=== PATIENT | female | born 1960 | race Caucasian/White ===

== ENCOUNTER → 2020-10-25 | Outpatient (CLI) | payer BC | LOC: WI 14:24 | PROVIDERS: ATTEND Nurse Practitioner Family | DX: Z12.31 Encounter for screening mammogram for malignant neoplasm of breast (principal) | CPT/HCPCS: 77067 ==

== ENCOUNTER → 2020-10-27 | Outpatient (CLI) | payer BC ==
[2020-10-27 08:14] LABS: ABSOLUTE BASOPHILS # (AUTO) 0.1 10^3/uL (0.0-0.2); ABSOLUTE EOSINOPHILS # (AUTO) 0.3 10^3/uL (0.0-0.6); ABSOLUTE LYMPHOCYTES (AUTO) 3.6 10^3/uL (0.5-4.7); ABSOLUTE MONOCYTES (AUTO) 0.5 10^3/uL (0.1-1.4); ABSOLUTE NEUT (AUTO) 4.2 10^3/uL (1.7-8.2); BASOPHILS % (AUTO) 0.9 % (0-2); EOSINOPHILS % (AUTO) 3.3 % (0-6); HEMATOCRIT 41.3 % (36.0-47.0); HEMOGLOBIN 13.8 g/dL (12.0-15.5); LYMPHOCYTES % (AUTO) 41.6 % (13-45); MEAN CORPUSCULAR HEMOGLOBIN 31.5 pg (27.0-33.4); MEAN CORPUSCULAR HGB CONC 33.3 g/dL (32.0-36.0); MEAN CORPUSCULAR VOLUME 95 fl (80-97); MONOCYTES % (AUTO) 5.8 % (3-13); PLATELET COUNT 320 10^3/uL (150-450); RED BLOOD COUNT 4.36 10^6/uL (3.72-5.28); RED CELL DISTRIBUTION WIDTH 13.4 % (11.5-14.0); SEGMENTED NEUTROPHILS % (AUTO) 48.4 % (42-78); TOTAL CELLS COUNTED % (AUTO) 100 %; WHITE BLOOD COUNT 8.6 10^3/uL (4.0-10.5)
[2020-10-27 08:32] LABS: ALBUMIN 4.4 g/dL (3.5-5.0); ALKALINE PHOSPHATASE 96 U/L (38-126); ANION GAP 10 (5-19); ASPARTATE AMINO TRANSFERASE 31 U/L (14-36); BLOOD UREA NITROGEN 22 mg/dL (7-20); CALCIUM 10.2 mg/dL (8.4-10.2); CARBON DIOXIDE 23 mmol/L (22-30); CHLORIDE 107 mmol/L (98-107); GLUCOSE 129 mg/dL (75-110)
[2020-10-27 08:33] LABS: BILIRUBIN,DIRECT 0.2 mg/dL (0.0-0.4); BILIRUBIN,TOTAL 0.6 mg/dL (0.2-1.3); TOTAL PROTEIN 7.4 g/dL (6.3-8.2)
== END ==
LOC: LAB 07:52
PROVIDERS: ATTEND Nurse Practitioner Family
DX: E11.9 Type 2 diabetes mellitus without complications (principal); I10 Essential (primary) hypertension; R79.89 Other specified abnormal findings of blood chemistry
CPT/HCPCS: 36415; 80053; 83036; 85025

== ENCOUNTER 2020-11-26 07:14 | Inpatient (IN) | payer BC ==
[2020-11-26] MEDS ORDERED: NORMAL SALINE 1000 ML 1,000 ML IV ONE (08:35)
--- NOTE | 2020-11-26 08:39 | RADIOLOGY REPORT (SQ) ---
EXAM DESCRIPTION: CHEST SINGLE VIEW IMAGES COMPLETED DATE/TIME: 11/26/2020 8:31 am REASON FOR STUDY: cp COMPARISON: None. EXAM PARAMETERS: NUMBER OF VIEWS: One view. TECHNIQUE: Single frontal radiographic view of the chest acquired. RADIATION DOSE: NA LIMITATIONS: None. FINDINGS: LUNGS AND PLEURA: No opacities, masses or pneumothorax. No pleural effusion. MEDIASTINUM AND HILAR STRUCTURES: No masses. Contour normal. HEART AND VASCULAR STRUCTURES: Enlarged cardiac silhouette. BONES: No acute findings. HARDWARE: None in the chest. OTHER: No other significant finding. IMPRESSION: Enlarged cardiac silhouette without other evidence of acute intrathoracic process. TECHNICAL DOCUMENTATION: JOB ID: [id number] 2010 [employer]- All Rights Reserved Reading location - IP/workstation name: [email or web address]
[2020-11-26 09:09] LABS: ABSOLUTE BASOPHILS # (AUTO) 0.1 10^3/uL (0.0-0.2); ABSOLUTE EOSINOPHILS # (AUTO) 0.3 10^3/uL (0.0-0.6); ABSOLUTE LYMPHOCYTES (AUTO) 2.4 10^3/uL (0.5-4.7); ABSOLUTE MONOCYTES (AUTO) 0.4 10^3/uL (0.1-1.4); ABSOLUTE NEUT (AUTO) 3.9 10^3/uL (1.7-8.2); ALKALINE PHOSPHATASE 102 U/L (38-126); ANION GAP 7 (5-19); ASPARTATE AMINO TRANSFERASE 34 U/L (14-36); BASOPHILS % (AUTO) 1.1 % (0-2); BILIRUBIN,DIRECT 0.1 mg/dL (0.0-0.4); BILIRUBIN,TOTAL 1.2 mg/dL (0.2-1.3); BLOOD UREA NITROGEN 25 mg/dL (7-20); CALCIUM 9.8 mg/dL (8.4-10.2); CARBON DIOXIDE 22 mmol/L (22-30); CHLORIDE 108 mmol/L (98-107); CREATINE KINASE 106 U/L (30-135); GLUCOSE 100 mg/dL (75-110); HEMATOCRIT 38.3 % (36.0-47.0); LYMPHOCYTES % (AUTO) 33.9 % (13-45); MEAN CORPUSCULAR HEMOGLOBIN 31.6 pg (27.0-33.4); MEAN CORPUSCULAR VOLUME 93 fl (80-97); PLATELET COUNT 264 10^3/uL (150-450); POTASSIUM 5.1 mmol/L (3.6-5.0); RED BLOOD COUNT 4.13 10^6/uL (3.72-5.28); TOTAL CELLS COUNTED % (AUTO) 100 %; TOTAL PROTEIN 6.8 g/dL (6.3-8.2)
--- NOTE | 2020-11-26 09:20 | ER Document Report ---
Entered by SAKSHI RAZO SCRIBE 11/26/20 0844 Acting as scribe for:GLORY DOE MD ED General - General Chief Complaint: Palpitations Stated Complaint: PALPITATIONS Time Seen by Provider: 11/26/20 08:22 Mode of Arrival: Ambulatory Information source: Patient Notes: This 60 year old female patient was sent from endoscopy suite to the emergency department today for an asymptomatic rapid heart rate. Patient showed up this morning to this facility to have her scheduled colonoscopy performed and she was found to have a heart rate in the 130s. Patient was asymptomatic. Patient reports that her last food intake was Sunday night and she drank a little bit of Gatorade yesterday with MiraLAX. Patient mentions that she has had excessive amounts of diarrhea and urination. Patient mentions that she thinks she could be dehydrated. She has not had any caffeine recently. Patient has not experienced any chest pain. Patient was not aware that her heart was beating fast until I told her. Patient does report that she occasionally has spells where her heart rate will speed up and she will feel dizzy, but it never persists for very much time. - Related Data Allergies/Adverse Reactions: No Known Allergies Allergy (Unverified 11/25/20 12:44) Past Medical History - General Information source: Patient - Social History Smoking Status: Current Every Day Smoker Cigarette use (# per day): Yes - 1/4 ppd Frequency of alcohol use: None Drug Abuse: None Lives with: Family Family History: CAD - Father 74 from myocardial infarction, mother at 72 from stroke - Past Medical History Cardiac Medical History: Reports: Hx Hypercholesterolemia, Hx Hypertension Endocrine Medical History: Reports: Hx Diabetes Mellitus Type 2 Psychiatric Medical History: Reports: Hx Depression Past Surgical History: Reports: Hx Breast Surgery - biopsy - right, benign, Hx Cholecystectomy, Hx Hysterectomy - Immunizations Hx Diphtheria, Pertussis, Tetanus Vaccination: Yes Review of Systems - Review of Systems Constitutional: No symptoms reported EENT: No symptoms reported Cardiovascular: See HPI, Heart racing Respiratory: No symptoms reported Gastrointestinal: No symptoms reported Genitourinary: No symptoms reported Female Genitourinary: No symptoms reported Musculoskeletal: No symptoms reported Skin: No symptoms reported Hematologic/Lymphatic: No symptoms reported Neurological/Psychological: No symptoms reported -: Yes All other systems reviewed and negative Physical Exam - Vital signs Vitals: Temp Resp BP Pulse Ox 98.2 F 27 H 125/104 H 97 11/26/20 07:44 11/26/20 07:44 11/26/20 07:44 11/26/20 07:44 - Notes Notes: Physical Exam: General: Alert. HEENT: Normocephalic. Atraumatic. PERRL. Extraocular movements intact. Oropharynx clear. Neck: Supple. Non-tender. Respiratory: No respiratory distress. Clear and equal breath sounds bilaterally. Cardiovascular: Tachycardic into the 130s, normal rhythm. Abdominal: Obese. Non-tender. No distension. Normal Bowel Sounds. Back: No gross abnormalities. Extremities: Moves all four extremities. Upper extremities: Normal inspection. Normal ROM. Lower extremities: Normal inspection. No edema. Normal ROM. Neurological: Normal cognition. AAOx4. Normal speech. Psychological: Normal affect. Normal Mood. Skin: Warm. Dry. Normal color. Course - Re-evaluation Re-evalutation: 11/26/20 15:11 Patient was given Adenocard 6 mg IV push in an effort to slow the rate and determine the rhythm. It did slow her down enough to prove this is atrial flutter and then she went back to the rate of 130. - Vital Signs Vital signs: Temp Pulse Resp BP Pulse Ox 98.2 F 26 H 118/95 H 97 11/26/20 07:44 11/26/20 15:01 11/26/20 15:00 11/26/20 15:01 - Laboratory Results Result Diagrams: 11/26/20 08:40 11/26/20 08:40 Laboratory Results Interpreted: 11/26/20 11/26/20 08:40 11:30 Sodium 136.7 L Potassium 5.1 H Chloride 108 H BUN 25 H Creatinine 1.37 H Est GFR ( Amer) 48 L Est GFR (MDRD) Non-Af 39 L NT-Pro-B Natriuret Pep 2640 H Critical Laboratory Results Reviewed: Yes Attending or Supervising Physician who Reviewed Labs: GLORY DOE - Troponin leak - Radiology Results Radiology Results Interpreted: 11/26/20 09:34 Chest x-ray shows enlarged heart, no other abnormalities. Critical Radiology Results Reviewed: No Critical Results - EKG Interpretation by De EKG shows normal: Hawkins. abnormal: Intervals - Prolonged QT interval, QRS Complexes - Borderline R wave progression in the anterior leads, ST-T Waves - Borderline anterolateral T abnormalities Rate: Tachycardia - 129 Rhythm: A.Flutter Critical Care Note - Critical Care Note Total time excluding time spent on procedures (mins): 35 Comments: At least 35 minutes spent evaluating patient, reviewing current and past history and lab work. Patient did have critical troponin values. Patient had a EKG which was suggestive but inconclusive of atrial flutter. Patient did not respond to initial medications. Diagnosis made using a Brittney to slow the heart rate and expose the atrial flutter. Time spent discussing the Case with the dinkey engine mechanic on-call, and with the hospitalist to get the patient admitted. Discharge - Discharge Clinical Impression: Atrial flutter with rapid ventricular response, Elevated troponin I level Condition: Good Disposition: ADMITTED OBSERVATION Admitting Provider: Alysa (Hospitalist) Unit Admitted: IMCU I personally performed the services described in the documentation, reviewed and edited the documentation which was dictated to the scribe in my presence, and it accurately records my words and actions.
[2020-11-26 09:21] LABS: CREATINE KINASE MB 2.07 ng/mL (<4.55)
[2020-11-26 09:24] LABS: TROPONIN I 0.146 ng/mL
[2020-11-26] MEDS ORDERED: ASPIRIN 81 MG TABLET, CHEWABLE PO ONE (09:26)
[2020-11-26] MEDS ORDERED: METOPROLOL TARTRATE PF/INJ 5 MG/5 ML SDV IV ONE ×2 (09:27→20:00)
[2020-11-26] MEDS ORDERED: ENOXAPARIN SODIUM INJ 100 MG/1 ML DISP.SYRIN SUBCUT ONE (09:30)
[2020-11-26] MEDS ORDERED: FAMOTIDINE INJ/PF 20 MG/2 ML SDV IV ONE (09:31)
[2020-11-26 09:47] LABS: INTERNATIONAL RATION (INR) 0.93; PROTHROMBIN TIME 12.7 SEC (11.4-15.4)
[2020-11-26 10:15] LABS: APPEARANCE,URINE CLEAR; BILIRUBIN,URINE NEGATIVE (NEGATIVE); COLOR,URINE YELLOW; GLUCOSE, URINE NEGATIVE (NEGATIVE); KETONES,URINE NEGATIVE (NEGATIVE); LEUKOCYTE ESTERASE,URINE NEGATIVE (NEGATIVE); NITRITE,URINE NEGATIVE (NEGATIVE); PROTEIN,URINE NEGATIVE (NEGATIVE); URINE SPECIFIC GRAVITY 1.008; UROBILINOGEN,URINE NEGATIVE mg/dL (<2.0)
[2020-11-26] MEDS ORDERED: DILTIAZEM HCL INJ 25 MG/5 ML VIAL IV ONE ×5 (11:45→20:00)
[2020-11-26] MEDS ORDERED: ADENOSINE INJ/PF 6 MG/2 ML SDV IV ONE (14:20)
[2020-11-26] MEDS ORDERED: DILTIAZEM HCL/D5W 125 MG/125 ML RTUINJ IV PRN (15:15)
[2020-11-26] MEDS ORDERED: ONDANSETRON HCL INJ/PF 4 MG/2 ML SDV IV PRN (16:09)
[2020-11-26] MEDS ORDERED: MAG HYDROX/AL HYDROX/SIMETH SUSP 30 ML UDCUP PO PRN (16:09)
[2020-11-26 16:22] LABS: FREE T4 (FREE THYROXINE) 1.29 ng/dL (0.78-2.19)
[2020-11-26] MEDS ORDERED: ACETAMINOPHEN 325 MG TABLET PO PRN (16:28)
[2020-11-26] MEDS ORDERED: DEXTROSE 50%-WATER 25 GM/50 ML DISP.SYRIN IV PRN ×2 (16:31)
[2020-11-26] MEDS ORDERED: DEXTROSE 40% GEL 15 GM TUBE PO PRN ×2 (16:31)
[2020-11-26] MEDS ORDERED: GLUCAGON,HUMAN RECOMB 1 MG INJ IM PRN (16:31)
[2020-11-26 16:45] LABS: THYROID STIMULATING HORMONE 1.84 uIU/mL (0.47-4.68)
[2020-11-26] MEDS ORDERED: NICOTINE 14 MG/24 HR PATCH.TD24 TD PRN (16:47)
--- NOTE | 2020-11-26 16:47 | PDOC H&P ---
History of Present Illness Admission Date/PCP: 11/26/20 15:45 DEMARCO CARRENO Patient complains of: Palpitations History of Present Illness: TOMY LEO is a 60 year old female with history of hypertension, diabetes type 2, tobacco use, who presents to the hospital with complaints of palpitations. Patient was actually scheduled to have a routine screening colonoscopy this morning and presented to [facility] from which she was referred to the ER after being noted to be tachycardic in the 130s. Notably patient has no previous diagnosis of arrhythmia but she does states that for the past 6 weeks, she has been experiencing intermittent episodes of palpitations occasionally with mild dizziness but never syncopized. She has not experienced any chest pain. She denies any history of heart disease, stroke or other vascular disease. In the ER, patient received Lopressor IV push and diltiazem push with no effect. She also received a bolus of 1 L normal saline. She subsequently received adenosine which slowed down the rhythm enough to tow picker on flutter waves. She currently denies any chest pain or shortness of breath and feels well. Past Medical History Cardiac Medical History: Reports: Hyperlipidema, Hypertension Denies: Coronary Artery Disease, Myocardial Infarction Pulmonary Medical History: Denies: Asthma, Chronic Obstructive Pulmonary Disease (COPD), Pneumonia Neurological Medical History: Denies: Seizures Endocrine Medical History: Reports: Diabetes Mellitus Type 2 Musculoskeltal Medical History: Denies: Arthritis Psychiatric Medical History: Reports: Depression Hematology: Denies: Anemia Past Surgical History Past Surgical History: Reports: Cholecystectomy, Hysterectomy Social History Lives with: Family Smoking Status: Current Every Day Smoker Frequency of Alcohol Use: None Hx Recreational Drug Use: No - Advance Directive Resuscitation Status: Full Code Family History Family History: CAD - Father 74 from myocardial infarction, mother at 72 from stroke Parental Family History Reviewed: Yes Children Family History Reviewed: Yes Sibling(s) Family History Reviewed.: Yes Medication/Allergy Home Medications: Atorvastatin Calcium [Lipitor 40 mg Tablet] 40 mg PO DAILY 11/25/20 Bupropion HCl [Wellbutrin 100 mg Tablet] 150 mg PO DAILY 11/25/20 Calcium Carbonate 300 mg PO DAILY 11/25/20 Cholecalciferol (Vitamin D3) [Vitamin D3 1000 Unit Tablet] 1,000 unit PO BID 11/25/20 Losartan Potassium [Cozaar 50 mg Tablet] 50 mg PO DAILY 11/25/20 Metformin HCl 500 mg PO BID 11/25/20 Multivitamin 1 each PO DAILY 11/25/20 Allergies/Adverse Reactions: No Known Allergies Allergy (Unverified 11/25/20 12:44) Review of Systems Constitutional: ABSENT: chills, fatigue, fever(s) Eyes: ABSENT: visual disturbances Ears: ABSENT: hearing changes Nose, Mouth, and Throat: ABSENT: headache(s) Cardiovascular: PRESENT: palpitations. ABSENT: chest pain, dyspnea on exertion Respiratory: ABSENT: cough, dyspnea Gastrointestinal: ABSENT: abdominal pain, hematemesis, hematochezia, melena, nausea, vomiting Genitourinary: ABSENT: hematuria Integumentary: ABSENT: diaphoresis Neurological: PRESENT: dizziness - Intermittently Endocrine: ABSENT: polyuria Hematologic/Lymphatic: ABSENT: easy bleeding Allergic/Immunologic: ABSENT: seasonal rhinorrhea Physical Exam Vital Signs: Temp Pulse Resp BP Pulse Ox 98.2 F 26 H 118/95 H 97 11/26/20 07:44 11/26/20 15:01 11/26/20 15:00 11/26/20 15:01 Intake & Output 11/25/20 11/26/20 11/27/20 06:59 06:59 06:59 Intake Total 1000 Balance 1000 Weight 89.358 kg General appearance: PRESENT: no acute distress, cooperative Head exam: PRESENT: normocephalic Eye exam: PRESENT: EOMI Neck exam: ABSENT: JVD Respiratory exam: PRESENT: crackles - Left lung base, symmetrical, unlabored. ABSENT: tachypnea, wheezes Cardiovascular exam: PRESENT: +S1, +S2, tachycardia. ABSENT: irregular rhythm GI/Abdominal exam: PRESENT: soft. ABSENT: rebound, rigid, tenderness Extremities exam: PRESENT: pedal edema - With varicose veins Neurological exam: PRESENT: alert, awake, oriented to person, oriented to place, oriented to time, oriented to situation Psychiatric exam: ABSENT: agitated, anxious Focused psych exam: ABSENT: pressured speech Skin exam: ABSENT: jaundice Results Laboratory Results: 11/26/20 08:40 11/26/20 08:40 11/26/20 11/26/20 11/26/20 08:40 08:40 08:40 WBC 7.0 RBC 4.13 Hgb 13.0 Hct 38.3 MCV 93 MCH 31.6 MCHC 34.0 RDW 14.0 Plt Count 264 Seg Neutrophils % 56.0 Sodium 136.7 L Potassium 5.1 H Chloride 108 H Carbon Dioxide 22 Anion Gap 7 BUN 25 H Creatinine 1.37 H Est GFR ( Amer) 48 L Glucose 100 Calcium 9.8 Total Bilirubin 1.2 AST 34 Alkaline Phosphatase 102 Total Protein 6.8 Albumin 4.0 Free T4 1.29 Urine Color Urine Appearance Urine pH Ur Specific [place] Urine Protein Urine Glucose (UA) Urine Ketones Urine Blood Urine Nitrite Ur Leukocyte Esterase Urine WBC (Auto) Urine RBC (Auto) 11/26/20 09:50 WBC RBC Hgb Hct MCV MCH MCHC RDW Plt Count Seg Neutrophils % Sodium Potassium Chloride Carbon Dioxide Anion Gap BUN Creatinine Est GFR ( Amer) Glucose Calcium Total Bilirubin AST Alkaline Phosphatase Total Protein Albumin Free T4 Urine Color YELLOW Urine Appearance CLEAR Urine pH 6.0 Ur Specific [place] 1.008 Urine Protein NEGATIVE Urine Glucose (UA) NEGATIVE Urine Ketones NEGATIVE Urine Blood NEGATIVE Urine Nitrite NEGATIVE Ur Leukocyte Esterase NEGATIVE Urine WBC (Auto) 1 Urine RBC (Auto) 1 11/26/20 11/26/20 11/26/20 08:40 08:40 11:30 Creatine Kinase 106 CK-MB (CK-2) 2.07 Troponin I 0.146 0.131 NT-Pro-B Natriuret Pep 11/26/20 11:30 Creatine Kinase CK-MB (CK-2) Troponin I NT-Pro-B Natriuret Pep 2640 H Impressions: Chest X-Ray 11/26/20 08:19 IMPRESSION: Enlarged cardiac silhouette without other evidence of acute intrathoracic process. Assessment and Plan - Diagnosis (1) Atrial flutter with rapid ventricular response Is this a current diagnosis for this admission?: Yes Plan: New onset atrial flutter. Flutter waves captured following administration of adenosine. So far, has not had good response to Cardizem and Lopressor pushes. We will see how she does with diltiazem drip. If no improvement, will try some digoxin Check echocardiogram It seems this has been going on for a while so we will pursue rate control and start on anticoagulation CHADSVASC score is 3 and she denies any history of significant bleeding Keep on telemetry Check thyroid function Cardiology consulted (2) Type 2 GA (myocardial infarction) Is this a current diagnosis for this admission?: Yes Plan: Flat troponin trend. Likely type II GA from demand ischemia given her rapid ventricular rate (3) Elevated brain natriuretic peptide (BNP) level Is this a current diagnosis for this admission?: Yes Plan: Also has crackles in left lung base. We will try some Lasix. Evaluate with an echocardiogram. Will monitor I's and O's. (4) Hypertension Qualifiers: Hypertension type: essential hypertension Qualified Code(s): I10 - Essential (primary) hypertension Is this a current diagnosis for this admission?: Yes Plan: Continue losartan (5) Diabetes mellitus type 2 in obese Is this a current diagnosis for this admission?: Yes Plan: Hold Metformin. Sliding scale insulin and Accu-Cheks. Likely has stage III CKD but creatinine is at baseline. (6) Tobacco abuse Is this a current diagnosis for this admission?: Yes Plan: Continue Wellbutrin. Nicotine patch (7) Varicose veins of both lower extremities Qualifiers: Varicose vein complication: asymptomatic Qualified Code(s): I83.93 - Asymptomatic varicose veins of bilateral lower extremities Is this a current diagnosis for this admission?: Yes - Time Time Spent with patient: 35 or more minutes Anticipated Discharge Disposition: Home, Self Care Anticipated Discharge Timeframe: within 36 hours
[2020-11-26] MEDS ORDERED: APIXABAN 5 MG TABLET PO SCH (18:00)
[2020-11-26] MEDS: FUROSEMIDE INJ/PF 20 MG/2 ML SDV IV SCH (18:14)
[2020-11-26] MEDS: DILTIAZEM HCL/D5W 125 MG/125 ML RTUINJ IV PRN (18:30)
--- NOTE | 2020-11-26 19:24 | XCELERA REPORT ---
[address] [address] Transthoracic Echocardiogram Report Name: TOMY LEO Age: 60 yrs Gender: Female : 1960 Patient Status: Inpatient Patient Location: [address] [place] [address] Study Date: 11/26/2020 05:21 PM Height: 62 in Weight: 197 lb BSA: 1.9 m2 Procedure: A complete two-dimensional transthoracic echocardiogram was performed (2D, M-mode, spectral and color flow Doppler). The study was technically difficult with many images being suboptimal in quality. Reason For Study: New onset afib. elevated troponin Ordering Physician: NIRMAL HOWARD Performed By: Brittnee Crowley Interpretation Summary LV EF is 35%% LV diastolic function could not be adequately assessed due to atrial fibrilation. There is mild to moderate global hypokinesis of the left ventricle. The left ventricle is grossly normal size. The right ventricular systolic function is normal. The right ventricle is grossly normal size. The left atrial size is normal. The right atrium is normal in size There is no mitral valve stenosis. There is a mild to moderate amount of mitral regurgitation There is a trace amount of aortic regurgitation There is no aortic valve stenosis There is a trace or physiologic amount of tricuspid regurgitation There is a trace amount of tricuspid regurgitation Tricuspid regurgitation jet envelope not well defined to measure RV systolic pressure accurately. The aortic root is normal size. The inferior vena cava appeared dilated and decreased < 50% with respiration (RAP 15-20 mmHg) There is no pericardial effusion. MMode/2D Measurements & Calculations RVDd: 3.4 cm LVIDd: 4.7 cm FS: 20.1 % Ao root diam: 2.2 cm IVSd: 1.1 cm LVIDs: 3.8 cm EDV(Teich): Ao root area: 104.5 ml LVPWd: 1.1 cm 3.8 cm2 ESV(Teich): 61.6 mlLA dimension: 3.8 cm EF(Teich): 41.1 % LVLd ap4: 6.2 cm SV(MOD-sp4): EDV(MOD-sp4): 32.0 ml 83.0 ml LVLs ap4: 5.6 cm ESV(MOD-sp4): 51.0 ml EF(MOD-sp4): 38.6 % Doppler Measurements & Calculations MV E max jade: MV P1/2t max jade: Ao V2 max: LV V1 max P.6 cm/sec 103.8 cm/sec 134.6 cm/sec 3.3 mmHg MV A max jade: MV P1/2t: 35.6 msec Ao max PG: LV V1 max: 23.4 cm/sec 7.3 mmHg 91.2 cm/sec MVA(P1/2t): 6.2 cm2 MV E/A: 4.1 MV dec slope: 852.8 cm/sec2 MV dec time: 0.10 sec PA V2 max: PI end-d jade: TR max jade: MV P1/2t-pr_phl: 77.9 cm/sec 79.5 cm/sec 241.1 cm/sec 35.6 msec PA max PG: TR max P.4 mmHg 23.2 mmHg Left Ventricle The left ventricle is grossly normal size. Left ventricular systolic function is moderately reduced. LV EF is 35%%. LV diastolic function could not be adequately assessed due to atrial fibrilation. There is mild to moderate global hypokinesis of the left ventricle. Right Ventricle The right ventricle is grossly normal size. There is normal right ventricular wall thickness. The right ventricular systolic function is normal. Atria The right atrium is normal in size. The left atrial size is normal. The interatrial septum is difficult to see, but appears to be grossly normal. Interarterial septum not well visualized and not well dopplered. Cannot comment on ASD/PFO presence. Mitral Valve The mitral valve is grossly normal. There is no mitral valve stenosis. There is a mild to moderate amount of mitral regurgitation. Aortic Valve The aortic valve is grossly normal. There is no aortic valve stenosis. There is a trace amount of aortic regurgitation. Tricuspid Valve The tricuspid valve is not well visualized, but is grossly normal. There is no tricuspid stenosis. There is a trace or physiologic amount of tricuspid regurgitation. There is a trace amount of tricuspid regurgitation. Tricuspid regurgitation jet envelope not well defined to measure RV systolic pressure accurately. Pulmonic Valve The pulmonic valve is not well visualized. Great Vessels The aortic root is normal size. The inferior vena cava appeared dilated and decreased < 50% with respiration (RAP 15-20 mmHg). Effusions There is no pericardial effusion. : NIRMAL HOWARD Shyamal
--- NOTE | 2020-11-26 19:35 | EKG REPORT ---
SEVERITY:- ABNORMAL ECG - SINUS TACHYCARDIA BORDERLINE R WAVE PROGRESSION, ANTERIOR LEADS BORDERLINE T ABNORMALITIES, ANT-LAT LEADS PROLONGED QT INTERVAL : Confirmed by: Esperanza Stein MD 26-Nov-2020 19:35:10
[2020-11-26] MEDS ORDERED: DIGOXIN INJ 0.5 MG/2 ML AMPULE IV ONE (20:00)
--- NOTE | 2020-11-26 20:15 | PDOC CONSULTATION ---
Consultation Consult Date: 11/26/20 Attending physician:: NIRMAL HOWARD Provider Consulted: HINA PLATA Consult reason:: Atrial flutter, abnormal troponin I History of Present Illness Admission Date/PCP: 11/26/20 15:45 DEMARCO CARRENO Patient complains of: Palpitations, but was noted to be in tachycardia in while waiting for endoscopy, therefore sent for evaluation, through the emergency department. History of Present Illness: TOMY LEO is a 60 year old female, who has been experiencing intermittent palpitations, transient associated with mild shortness of breath for last 6 weeks or so. She came for endoscopy today and was noted to be tachycardic with heart rate in the 130s. Patient was therefore referred to the emergency room. Emergency room evaluation showed patient to be having borderline blood pressure, heart rate in the 130s with abnormal troponin I elevation. Patient however denied any chest pain. EKG showed no acute ST segment changes. I was consulted by phone by the ER physician about increased heart rate not responding to IV Cardizem, IV metoprolol as well as Cardizem drip. I advised patient to be given Adenocard bolus which revealed underlying atrial flutter. Patient was subsequently admitted. Patient had a 2D echocardiogram which surprisingly showed depressed LVEF but normal left atrium and left ventricular size as well as normal right atrial size. No evidence of intra cardiac thrombus noted. Patient was on Cardizem drip at the floor and was still having heart rate which was uncontrolled at around 130 to 136 bpm. It was felt that patient will benefit from amiodarone bolus and drip protocol. I also ordered for IV digoxin and IV Lopressor. Echocardiogram showed IVC to be dilated with reduced respiratory variation suggestive of CHF. Patient BNP was also noted to be elevated. Patient blood pressure was noted in the low 90s to low 100s Past Medical History Cardiac Medical History: Reports: Hyperlipidema, Hypertension Denies: Coronary Artery Disease, Myocardial Infarction Pulmonary Medical History: Denies: Asthma, Chronic Obstructive Pulmonary Disease (COPD), Pneumonia Neurological Medical History: Denies: Seizures Endocrine Medical History: Reports: Diabetes Mellitus Type 2 Musculoskeltal Medical History: Denies: Arthritis Psychiatric Medical History: Reports: Depression Hematology: Denies: Anemia Past Surgical History Past Surgical History: Reports: Cholecystectomy, Hysterectomy Social History Information Source: Patient Lives with: Family Smoking Status: Current Every Day Smoker Frequency of Alcohol Use: None Hx Recreational Drug Use: No - Advance Directive Resuscitation Status: Full Code Family History Family History: CAD - Father 74 from myocardial infarction, mother at 72 from stroke, CVA Parental Family History Reviewed: Yes Children Family History Reviewed: Yes Sibling(s) Family History Reviewed.: Yes Medication/Allergy Home Medications: Atorvastatin Calcium [Lipitor 40 mg Tablet] 40 mg PO QHS 11/25/20 Calcium Carbonate 300 mg PO DAILY 11/25/20 Cholecalciferol (Vitamin D3) [Vitamin D3 1000 Unit Tablet] 1,000 unit PO BID 11/25/20 Losartan Potassium [Cozaar 50 mg Tablet] 50 mg PO DAILY 11/25/20 Metformin HCl 500 mg PO BID 11/25/20 Multivitamin 1 each PO DAILY 11/25/20 Bupropion HCl [Bupropion Xl] 150 mg PO DAILY 11/26/20 Cyclobenzaprine HCl 5 mg PO Q8HP PRN 11/26/20 Allergies/Adverse Reactions: No Known Allergies Allergy (Unverified 11/25/20 12:44) Review of Systems Constitutional: ABSENT: chills, fever(s), headache(s), weight gain, weight loss Eyes: ABSENT: visual disturbances Ears: ABSENT: hearing changes Cardiovascular: PRESENT: dyspnea on exertion, palpitations. ABSENT: chest pain, edema, orthropnea Respiratory: ABSENT: cough, hemoptysis Gastrointestinal: ABSENT: abdominal pain, constipation, diarrhea, hematemesis, hematochezia, nausea, vomiting Genitourinary: ABSENT: dysuria, hematuria Musculoskeletal: ABSENT: joint swelling Integumentary: ABSENT: rash, wounds Neurological: ABSENT: abnormal gait, abnormal speech, confusion, dizziness, focal weakness, syncope Psychiatric: ABSENT: anxiety, depression, homidical ideation, suicidal ideation Endocrine: ABSENT: cold intolerance, heat intolerance, polydipsia, polyuria Hematologic/Lymphatic: ABSENT: easy bleeding, easy bruising Physical Exam Vital Signs: Temp Pulse Resp BP Pulse Ox 98.5 F 19 104/88 H 95 11/26/20 16:00 11/26/20 18:00 11/26/20 17:00 11/26/20 17:01 Intake & Output 11/25/20 11/26/20 11/27/20 06:59 06:59 06:59 Intake Total 1010 Balance 1010 Weight 89.358 kg General appearance: PRESENT: no acute distress, well-developed, well-nourished Head exam: PRESENT: atraumatic, normocephalic Eye exam: PRESENT: conjunctiva pink, EOMI, PERRLA. ABSENT: scleral icterus Ear exam: PRESENT: normal external ear exam Mouth exam: PRESENT: moist, tongue midline Neck exam: ABSENT: carotid bruit, JVD, lymphadenopathy, thyromegaly Respiratory exam: PRESENT: clear to auscultation devon. ABSENT: rales, rhonchi, wheezes Cardiovascular exam: PRESENT: RRR, +S1, +S2, tachycardia. ABSENT: diastolic murmur, rubs, systolic murmur Pulses: PRESENT: normal dorsalis pedis pul Vascular exam: PRESENT: normal capillary refill GI/Abdominal exam: PRESENT: normal bowel sounds, soft. ABSENT: distended, guarding, mass, organolmegaly, rebound, tenderness Rectal exam: PRESENT: deferred Extremities exam: PRESENT: full ROM. ABSENT: calf tenderness, clubbing, pedal edema Neurological exam: PRESENT: alert, awake, oriented to person, oriented to place, oriented to time, oriented to situation, CN II-XII grossly intact. ABSENT: motor sensory deficit Psychiatric exam: PRESENT: appropriate affect, normal mood. ABSENT: homicidal ideation, suicidal ideation Skin exam: PRESENT: dry, intact, warm. ABSENT: cyanosis, rash Results Laboratory Results: 11/26/20 08:40 11/26/20 08:40 11/26/20 11/26/20 11/26/20 08:40 08:40 08:40 WBC 7.0 RBC 4.13 Hgb 13.0 Hct 38.3 MCV 93 MCH 31.6 MCHC 34.0 RDW 14.0 Plt Count 264 Seg Neutrophils % 56.0 Sodium 136.7 L Potassium 5.1 H Chloride 108 H Carbon Dioxide 22 Anion Gap 7 BUN 25 H Creatinine 1.37 H Est GFR ( Amer) 48 L Glucose 100 Calcium 9.8 Total Bilirubin 1.2 AST 34 Alkaline Phosphatase 102 Total Protein 6.8 Albumin 4.0 TSH 1.84 Free T4 1.29 Urine Color Urine Appearance Urine pH Ur Specific [place] Urine Protein Urine Glucose (UA) Urine Ketones Urine Blood Urine Nitrite Ur Leukocyte Esterase Urine WBC (Auto) Urine RBC (Auto) 11/26/20 09:50 WBC RBC Hgb Hct MCV MCH MCHC RDW Plt Count Seg Neutrophils % Sodium Potassium Chloride Carbon Dioxide Anion Gap BUN Creatinine Est GFR ( Amer) Glucose Calcium Total Bilirubin AST Alkaline Phosphatase Total Protein Albumin TSH Free T4 Urine Color YELLOW Urine Appearance CLEAR Urine pH 6.0 Ur Specific [place] 1.008 Urine Protein NEGATIVE Urine Glucose (UA) NEGATIVE Urine Ketones NEGATIVE Urine Blood NEGATIVE Urine Nitrite NEGATIVE Ur Leukocyte Esterase NEGATIVE Urine WBC (Auto) 1 Urine RBC (Auto) 1 11/26/20 11/26/20 11/26/20 08:40 08:40 11:30 Creatine Kinase 106 CK-MB (CK-2) 2.07 Troponin I 0.146 0.131 NT-Pro-B Natriuret Pep 11/26/20 11:30 Creatine Kinase CK-MB (CK-2) Troponin I NT-Pro-B Natriuret Pep 2640 H EKG Comments: Type II atypical atrial flutter. No acute ST segment changes Impressions: Chest X-Ray 11/26/20 08:19 IMPRESSION: Enlarged cardiac silhouette without other evidence of acute intrathoracic process. Assessment & Plan - Diagnosis (1) Atrial flutter with rapid ventricular response Is this a current diagnosis for this admission?: Yes (2) Elevated brain natriuretic peptide (BNP) level Is this a current diagnosis for this admission?: Yes (3) Elevated troponin I level Is this a current diagnosis for this admission?: Yes (4) Hypertension Qualifiers: Hypertension type: essential hypertension Qualified Code(s): I10 - Essential (primary) hypertension Is this a current diagnosis for this admission?: Yes (5) Tobacco abuse Is this a current diagnosis for this admission?: Yes (6) Type 2 [place] (myocardial infarction) Is this a current diagnosis for this admission?: Yes - Notes Notes: Atrial flutter with 2-1 conduction. Its been difficult to control her rate. Feel that amiodarone bolus and drip protocol may be appropriate given depressed LVEF, borderline blood pressures levels, positive troponin I, elevated BNP. Since left atrium is normal size, right atrium normal size, feel that atrial flutter fibrillation is probably just about 24 hours in duration or even less. Patient denied feeling any sustained palpitations but has a history of paroxysmal palpitations. Due to depressed LVEF beta-blockers are better for rate control but currently patient on diltiazem drip. Will gradually taper patient off and switch to beta-hunter and digoxin. Positive troponin I elevation and type II non-STEMI: Treat with Lovenox, antianginal regimen etc. Rate control would be very important. Elevated BNP level, systolic CHF: Will recommend spironolactone therapy, diuretic therapy once blood pressure is stable. Hypertension: Blood pressures under satisfactory control. Tobacco abuse: Patient advised to quit smoking. Diabetes: Patient would be a good candidate for SGLT2 inhibitor therapy. This will be instituted at a later date. Sleep apnea: This is being strongly suspected. Patient describes history very typical of sleep apnea. Due to atrial fibrillation patient will benefit from a sleep study as an outpatient. Patient does give history of loud snoring, daytime fatigue and sleepiness. - Time Time Spent: 30 to 50 Minutes Medications reviewed and adjusted accordingly: Yes
[2020-11-26] MEDS ORDERED: AMIODARONE HCL 150 MG in DEXTROSE 5%-WATER 100 ML IV ONE (21:00)
[2020-11-26] MEDS ORDERED: DEXTROSE 5%-WATER 500 ML with AMIODARONE HCL 900 MG IV PRN ×2 (21:00)
[2020-11-26] MEDS: INSULIN LISPRO 100 UNIT/ML 3 ML VIAL SUBCUT SCH (22:00)
[2020-11-26] MEDS: ENOXAPARIN SODIUM INJ 100 MG/1 ML DISP.SYRIN SUBCUT SCH (22:06)
[2020-11-26] MEDS: ATORVASTATIN CALCIUM 40 MG TABLET PO SCH (22:07)
[2020-11-26] MEDS: BUPROPION HCL 75 MG TABLET PO SCH (22:07)
[2020-11-26] MEDS: METOPROLOL TARTRATE PF/INJ 5 MG/5 ML SDV IV PRN (22:07)
[2020-11-27] MEDS: DILTIAZEM HCL/D5W 125 MG/125 ML RTUINJ IV PRN (02:50)
[2020-11-27 05:42] LABS: ANION GAP 11 (5-19); BLOOD UREA NITROGEN 31 mg/dL (7-20); CALCIUM 9.3 mg/dL (8.4-10.2); CARBON DIOXIDE 20 mmol/L (22-30); CHLORIDE 108 mmol/L (98-107); GLUCOSE 123 mg/dL (75-110); POTASSIUM 4.6 mmol/L (3.6-5.0)
[2020-11-27] MEDS: FUROSEMIDE INJ/PF 20 MG/2 ML SDV IV SCH (05:48)
[2020-11-27] MEDS ORDERED: INFLUENZA QUAD (6MOS+) 2020-21 VAC 0.5 ML SYR IM ONE (08:00)
[2020-11-27] MEDS: INSULIN LISPRO 100 UNIT/ML 3 ML VIAL SUBCUT SCH ×4 (08:16→21:27)
[2020-11-27] MEDS ORDERED: CYCLOBENZAPRINE HCL 10 MG TABLET PO PRN (08:51)
[2020-11-27] MEDS ORDERED: LOSARTAN POTASSIUM 50 MG TABLET PO SCH (10:00)
[2020-11-27] MEDS: MULTIVITAMIN TABLET PO SCH (10:13)
[2020-11-27] MEDS: CHOLECALCIFEROL (D3) 1,000 UNIT (25 MCG) TABLET PO SCH (10:13)
[2020-11-27] MEDS: DIGOXIN INJ 0.5 MG/2 ML AMPULE IV SCH ×3 (10:13→21:44)
[2020-11-27] MEDS: BUPROPION HCL 75 MG TABLET PO SCH ×2 (10:13→21:44)
[2020-11-27] MEDS: ENOXAPARIN SODIUM INJ 100 MG/1 ML DISP.SYRIN SUBCUT SCH ×2 (10:14→21:45)
--- NOTE | 2020-11-27 11:39 | EKG REPORT ---
SEVERITY:- ABNORMAL ECG - ECTOPIC ATRIAL TACHYCARDIA BORDERLINE LEFT AXIS DEVIATION : Confirmed by: Esperanza Stein MD 27-Nov-2020 11:38:03
--- NOTE | 2020-11-27 11:39 | EKG REPORT ---
SEVERITY:- ABNORMAL ECG - ATRIAL FLUTTER/FIBRILLATION, A-RATE 252 BORDERLINE R WAVE PROGRESSION, ANTERIOR LEADS : Confirmed by: Esperanza Stein MD 27-Nov-2020 11:37:56
[2020-11-27] MEDS ORDERED: METOPROLOL TARTRATE PF/INJ 5 MG/5 ML SDV IV SCH (12:00)
[2020-11-27] MEDS ORDERED: METOPROLOL TARTRATE PF/INJ 5 MG/5 ML SDV IV PRN (12:35)
[2020-11-27] MEDS: METOPROLOL SUCCINATE 25 MG TAB.SR.24H PO SCH ×2 (13:28→21:44)
--- NOTE | 2020-11-27 13:43 | PDOC PROGRESS REPORT ---
Subjective Date:: 11/27/20 Subjective:: Patient claims to be doing fine without any symptoms of chest pains or shortness of breath. Patient has been ambulating to the bathroom without any symptoms. She is requesting to walk in the hallway which I cleared with the nurses. Patient however remains in atrial fibrillation with rapid ventricular response. Her ventricular response has been somewhat difficult to control. Patient was started on amiodarone drip and currently on protocol. Reason For Visit: AFLUTTER RVR, CARDIOMYOPATHY Physical Exam Vital Signs: Temp Pulse Resp BP Pulse Ox 97.7 F 129 H 17 104/52 L 97 11/27/20 07:47 11/27/20 09:00 11/27/20 07:47 11/27/20 09:00 11/27/20 07:47 Intake & Output 11/26/20 11/27/20 11/28/20 06:59 06:59 06:59 Intake Total 1442 274 Balance 1442 274 Weight 89.584 kg Exam: GENERAL: well-nourished and in no acute distress. Alert and oriented x3 HEAD: Atraumatic, normocephalic. EYES: BETSY, sclera anicteric, conjunctiva are normal. ENT: Moist mucous membranes. No oral ulcerations or bleeding gums noted. No obvious ear, nose or throat abnormalities noted. NECK: supple without lymphadenopathy. Trachea is central. No cervical or axillary lymphadenopathy noted. Carotids are 2+, JVD WNL LUNGS: Breath sounds clear bilaterally. No wheezes rales or rhonchi noted. No significant dullness noted on percussion. CHEST: Palpation of the chest wall shows no significant chest wall tenderness. HEART: [place] [employer], No PSH, 1/6 ASHLEY aortic area, 1/6 bassett systolic murmur mitral area, no rubs, no gallops. ABDOMEN: Soft, no significant tenderness appreciated, normoactive bowel sounds. No guarding, no rebound. No rigidity noted . No masses appreciated. EXTREMITIES: Pedal pulses are 1-2+, no calf tenderness noted. No clubbing or cyanosis. negative pedal edema noted NEUROLOGICAL: Focused neurological exam showed no significant neurologic deficit. Normal speech, no focal weakness appreciated. PSYCH: Normal mood, normal affect. Judgment and insight within normal limits. SKIN: No significant ecchymosis, skin is noted to be warm. Spider veins noted lower extremity. MUSCULOSKELETAL EXAM: No significant acute joint swelling noted. Results Laboratory Results: 11/26/20 08:40 11/27/20 05:00 11/26/20 11/27/20 08:40 05:00 Sodium 138.8 Potassium 4.6 Chloride 108 H Carbon Dioxide 20 L Anion Gap 11 BUN 31 H Creatinine 1.54 H Est GFR ( Amer) 42 L Glucose 123 H Calcium 9.3 TSH 1.84 Free T4 1.29 11/26/20 11/26/20 11/26/20 08:40 08:40 11:30 Creatine Kinase 106 CK-MB (CK-2) 2.07 Troponin I 0.146 0.131 NT-Pro-B Natriuret Pep 11/26/20 11:30 Creatine Kinase CK-MB (CK-2) Troponin I NT-Pro-B Natriuret Pep 2640 H EKG Comments: Telemetry strip shows atypical atrial flutter with rapid ventricular response Impressions: Chest X-Ray 11/26/20 08:19 IMPRESSION: Enlarged cardiac silhouette without other evidence of acute intrathoracic process. Assessment & Plan - Diagnosis (1) Atrial flutter with rapid ventricular response Is this a current diagnosis for this admission?: Yes (2) Elevated brain natriuretic peptide (BNP) level Is this a current diagnosis for this admission?: Yes (3) Elevated troponin I level Is this a current diagnosis for this admission?: Yes (4) Hypertension Qualifiers: Hypertension type: essential hypertension Qualified Code(s): I10 - Essential (primary) hypertension Is this a current diagnosis for this admission?: Yes (5) Tobacco abuse Is this a current diagnosis for this admission?: Yes (6) Type 2 [place] (myocardial infarction) Is this a current diagnosis for this admission?: Yes - Notes Notes: ATRIAL FLUTTER: Its been difficult to control her rate. Currently on drip protocol may be appropriate given depressed LVEF, borderline blood pressures levels, positive troponin I, elevated BNP. Patient also on Lovenox. Will attempt to switch patient to oral anticoagulation. Due to depressed LVEF beta- blockers are better for rate control but currently patient on diltiazem drip, orders have been written to try discontinuing it. Patient has been started on digoxin and beta-blockers. Positive troponin I elevation and type II non-STEMI: Treat with Lovenox, antia nginal regimen etc. Rate control would be very important. Elevated BNP level, systolic CHF: Will recommend ARNI therapy, spironolactone therapy, diuretic therapy once blood pressure is stable. Hypertension: Blood pressures under satisfactory control. Tobacco abuse: Patient advised to quit smoking. Diabetes: Patient would be a good candidate for SGLT2 inhibitor therapy. This will be instituted at a later date. Sleep apnea: This is being strongly suspected. Patient describes history very typical of sleep apnea. Due to atrial fibrillation patient will benefit from a sleep study as an outpatient. Patient does give history of loud snoring, daytime fatigue and sleepiness. Did talk with Dr. Kuldeep Tran and also faxed him the EKG. Patient has been placed on transfer list at [facility] for ablation therapy/ROMA and cardioversion if needed. Patient can sometimes develop cardiomyopathy related to atrial tachycardia, chronic rapid ventricular response. I was advised to continue amiodarone drip as this will help maintain sinus rhythm if patient does indeed end up getting cardioversion. - Time Time with patient: Greater than 35 minutes - Time spent talking and seeking opinion from burning machine operator and arranging transfer, completing EMTALA form etc. Patient was informed about ongoing process and management plans. Medications reviewed and adjusted accordingly: Yes
--- NOTE | 2020-11-27 16:23 | PDOC PROGRESS REPORT ---
Subjective Date:: 11/27/20 Subjective:: Patient denies any palpitations or shortness of breath today. I had a thorough discussion with her about her medical conditions including her heart failure. Reason For Visit: AFLUTTER RVR, CARDIOMYOPATHY Physical Exam Vital Signs: Temp Pulse Resp BP Pulse Ox 97.7 F 123 H 17 104/52 L 97 11/27/20 07:47 11/27/20 14:00 11/27/20 07:47 11/27/20 09:00 11/27/20 07:47 Intake & Output 11/26/20 11/27/20 11/28/20 06:59 06:59 06:59 Intake Total 1442 274 Balance 1442 274 Weight 89.584 kg General appearance: PRESENT: no acute distress, cooperative Neck exam: ABSENT: JVD Respiratory exam: PRESENT: clear to auscultation devon, unlabored. ABSENT: tachypnea, wheezes Cardiovascular exam: PRESENT: irregular rhythm, +S1, +S2, tachycardia GI/Abdominal exam: PRESENT: soft. ABSENT: rebound, rigid, tenderness Extremities exam: PRESENT: pedal edema, +1 edema - With varicosities Neurological exam: PRESENT: alert, awake, oriented to person, oriented to place, oriented to time, oriented to situation Results Laboratory Results: 11/26/20 08:40 11/27/20 05:00 11/26/20 11/27/20 08:40 05:00 Sodium 138.8 Potassium 4.6 Chloride 108 H Carbon Dioxide 20 L Anion Gap 11 BUN 31 H Creatinine 1.54 H Est GFR ( Amer) 42 L Glucose 123 H Calcium 9.3 TSH 1.84 Free T4 1.29 11/26/20 11/26/20 11/26/20 08:40 08:40 11:30 Creatine Kinase 106 CK-MB (CK-2) 2.07 Troponin I 0.146 0.131 NT-Pro-B Natriuret Pep 11/26/20 11:30 Creatine Kinase CK-MB (CK-2) Troponin I NT-Pro-B Natriuret Pep 2640 H Impressions: Chest X-Ray 11/26/20 08:19 IMPRESSION: Enlarged cardiac silhouette without other evidence of acute intrathoracic process. Assessment and Plan - Diagnosis (1) Atrial flutter with rapid ventricular response Is this a current diagnosis for this admission?: Yes Plan: New onset atrial flutter. Flutter waves captured following administration of adenosine. So far, has not had good response to Cardizem pushes or drip and Lopressor pushes. Cardizem drip discontinued due to cardiomyopathy. CHADSVASC score is 3 and she denies any history of significant bleeding -on therapeutic Lovenox Keep on telemetry Thyroid function is adequate Cardiology following and initiated amiodarone drip and digoxin. Planning for transfer to [facility] on Sunday for ROMA/ablation (2) Type 2 [place] (myocardial infarction) Is this a current diagnosis for this admission?: Yes Plan: Flat troponin trend. Likely type II [place] from demand ischemia given her rapid ventricular rate. (3) Acute systolic heart failure Is this a current diagnosis for this admission?: Yes Plan: Echo notes EF of 35%, mild to moderate mitral regurgitation, and dilated IVC with less than 50% collapse of respiration. She has received some diuresis. Lungs sound clearer today. We will optimize her heart rate with beta blockade, digoxin. I will hold Lasix for now due to soft blood pressures. Losartan also on hold. (4) Hypertension Qualifiers: Hypertension type: essential hypertension Qualified Code(s): I10 - Essential (primary) hypertension Is this a current diagnosis for this admission?: Yes Plan: on hold due to soft bp (5) Diabetes mellitus type 2 in obese Is this a current diagnosis for this admission?: Yes Plan: Hold Metformin. Sliding scale insulin and Accu-Cheks. Likely has stage III CKD but creatinine is at baseline. (6) Tobacco abuse Is this a current diagnosis for this admission?: Yes Plan: Continue Wellbutrin. Nicotine patch (7) Varicose veins of both lower extremities Qualifiers: Varicose vein complication: asymptomatic Qualified Code(s): I83.93 - Asymptomatic varicose veins of bilateral lower extremities Is this a current diagnosis for this admission?: Yes - Time Time Spent with patient: 15-24 minutes Anticipated Discharge Disposition: Tertiary Anticipated Discharge Timeframe: within 48 hours
[2020-11-27] MEDS: ATORVASTATIN CALCIUM 40 MG TABLET PO SCH (21:44)
[2020-11-28] MEDS: METOPROLOL TARTRATE PF/INJ 5 MG/5 ML SDV IV PRN ×2 (02:59→18:00)
[2020-11-28 06:07] LABS: ANION GAP 10 (5-19); BLOOD UREA NITROGEN 28 mg/dL (7-20); CALCIUM 9.5 mg/dL (8.4-10.2); CARBON DIOXIDE 20 mmol/L (22-30); CHLORIDE 109 mmol/L (98-107); GLUCOSE 113 mg/dL (75-110); POTASSIUM 4.8 mmol/L (3.6-5.0)
[2020-11-28] MEDS: INSULIN LISPRO 100 UNIT/ML 3 ML VIAL SUBCUT SCH ×4 (08:47→22:00)
[2020-11-28] MEDS: CHOLECALCIFEROL (D3) 1,000 UNIT (25 MCG) TABLET PO SCH (10:07)
[2020-11-28] MEDS: BUPROPION HCL 75 MG TABLET PO SCH ×2 (10:07→21:34)
[2020-11-28] MEDS: DIGOXIN 0.125 MG TABLET PO SCH (10:07)
[2020-11-28] MEDS: AMIODARONE HCL 200 MG TABLET PO SCH ×2 (10:07→18:00)
[2020-11-28] MEDS: MULTIVITAMIN TABLET PO SCH (10:08)
[2020-11-28] MEDS: METOPROLOL SUCCINATE 25 MG TAB.SR.24H PO SCH (10:08)
[2020-11-28] MEDS: ENOXAPARIN SODIUM INJ 100 MG/1 ML DISP.SYRIN SUBCUT SCH ×2 (10:08→21:35)
--- NOTE | 2020-11-28 13:12 | PDOC PROGRESS REPORT ---
Subjective Date:: 11/28/20 Subjective:: Patient claims to be doing fine without any symptoms of chest pains or shortness of breath. Patient has been ambulating to the bathroom without any symptoms. Patient has been ambulating in the hallway without any significant problems. Patient however remains in atrial fibrillation with better heart rate control. Now on p.o. amiodarone, p.o. metoprolol succinate and p.o. digoxin at low-dose. She seems to be tolerating these medications. Reason For Visit: AFLUTTER RVR, CARDIOMYOPATHY Physical Exam Vital Signs: Temp Pulse Resp BP Pulse Ox 97.7 F 123 H 15 123/83 95 11/28/20 10:00 11/28/20 07:41 11/28/20 07:41 11/28/20 07:41 11/28/20 07:41 Intake & Output 11/27/20 11/28/20 11/29/20 06:59 06:59 06:59 Intake Total 1442 2541 Output Total 1350 Balance 1442 1191 Weight 89.584 kg 89.993 kg Exam: GENERAL: well-nourished and in no acute distress. Alert and oriented x3 HEAD: Atraumatic, normocephalic. EYES: BETSY, sclera anicteric, conjunctiva are normal. ENT: Moist mucous membranes. No oral ulcerations or bleeding gums noted. No obvious ear, nose or throat abnormalities noted. NECK: supple without lymphadenopathy. Trachea is central. No cervical or axillary lymphadenopathy noted. Carotids are 2+, JVD WNL LUNGS: Breath sounds clear bilaterally. No wheezes rales or rhonchi noted. No significant dullness noted on percussion. CHEST: Palpation of the chest wall shows no significant chest wall tenderness. HEART: [place] [employer], No PSH, 1/6 ASHLEY aortic area, 1/6 bassett systolic murmur mitral area, no rubs, no gallops. ABDOMEN: Soft, no significant tenderness appreciated, normoactive bowel sounds. No guarding, no rebound. No rigidity noted . No masses appreciated. EXTREMITIES: Pedal pulses are 1-2+, no calf tenderness noted. No clubbing or cyanosis. Trace to 1+ pedal edema noted NEUROLOGICAL: Focused neurological exam showed no significant neurologic deficit. Normal speech, no focal weakness appreciated. PSYCH: Normal mood, normal affect. Judgment and insight within normal limits. SKIN: No significant ecchymosis, skin is noted to be warm. Spider veins noted. MUSCULOSKELETAL EXAM: No significant acute joint swelling noted. Results Laboratory Results: 11/26/20 08:40 11/28/20 04:37 11/28/20 04:37 Sodium 138.6 Potassium 4.8 Chloride 109 H Carbon Dioxide 20 L Anion Gap 10 BUN 28 H Creatinine 1.55 H Est GFR ( Amer) 41 L Glucose 113 H Calcium 9.5 Magnesium 1.8 11/26/20 11/26/20 11/26/20 08:40 08:40 11:30 Creatine Kinase 106 CK-MB (CK-2) 2.07 Troponin I 0.146 0.131 NT-Pro-B Natriuret Pep 11/26/20 11:30 Creatine Kinase CK-MB (CK-2) Troponin I NT-Pro-B Natriuret Pep 2640 H EKG Comments: Shows atrial flutter fibrillation. Impressions: Chest X-Ray 11/26/20 08:19 IMPRESSION: Enlarged cardiac silhouette without other evidence of acute intrathoracic process. Assessment & Plan - Diagnosis (1) Atrial flutter with rapid ventricular response Is this a current diagnosis for this admission?: Yes (2) Elevated brain natriuretic peptide (BNP) level Is this a current diagnosis for this admission?: Yes (3) Elevated troponin I level Is this a current diagnosis for this admission?: Yes (4) Hypertension Qualifiers: Hypertension type: essential hypertension Qualified Code(s): I10 - Essential (primary) hypertension Is this a current diagnosis for this admission?: Yes (5) Tobacco abuse Is this a current diagnosis for this admission?: Yes (6) Type 2 [place] (myocardial infarction) Is this a current diagnosis for this admission?: Yes - Notes Notes: Patient continues to be in atrial flutter type II atypical. Heart rate is coming under control. Patient is on list for transfer to Dr. Kuldeep Tran service for consultation, possible ablation which will be preferred since patient is relatively young and has underlying cardiomyopathy. However patient may just undergo transesophageal echocardiogram along with cardioversion. I will be happy to see her back after discharge from the hospital. Patient medical management is gradually being optimized. Will add ARNI therapy. - Time Time with patient: Greater than 35 minutes Medications reviewed and adjusted accordingly: Yes
--- NOTE | 2020-11-28 15:33 | PDOC PROGRESS REPORT ---
Subjective Date:: 11/28/20 Subjective:: Patient feels well today. She denies any shortness of breath, palpitations or c hest pain. I discussed her condition and plans for transfer with her, her son and daughter was at bedside. Reason For Visit: AFLUTTER RVR, CARDIOMYOPATHY Physical Exam Vital Signs: Temp Pulse Resp BP Pulse Ox 97.7 F 125 H 15 123/83 95 11/28/20 10:00 11/28/20 14:00 11/28/20 07:41 11/28/20 07:41 11/28/20 07:41 Intake & Output 11/27/20 11/28/20 11/29/20 06:59 06:59 06:59 Intake Total 1442 2541 Output Total 1350 Balance 1442 1191 Weight 89.584 kg 89.993 kg General appearance: PRESENT: no acute distress, cooperative Neck exam: ABSENT: JVD Respiratory exam: PRESENT: crackles - Mild at lower lung base, unlabored. ABSENT: tachypnea, wheezes Cardiovascular exam: PRESENT: +S1, +S2, tachycardia. ABSENT: irregular rhythm GI/Abdominal exam: PRESENT: soft. ABSENT: rebound, rigid, tenderness Neurological exam: PRESENT: alert, awake, oriented to person, oriented to place, oriented to time Psychiatric exam: ABSENT: agitated, anxious Results Laboratory Results: 11/26/20 08:40 11/28/20 04:37 11/28/20 04:37 Sodium 138.6 Potassium 4.8 Chloride 109 H Carbon Dioxide 20 L Anion Gap 10 BUN 28 H Creatinine 1.55 H Est GFR ( Amer) 41 L Glucose 113 H Calcium 9.5 Magnesium 1.8 11/26/20 11/26/20 11/26/20 08:40 08:40 11:30 Creatine Kinase 106 CK-MB (CK-2) 2.07 Troponin I 0.146 0.131 NT-Pro-B Natriuret Pep 11/26/20 11:30 Creatine Kinase CK-MB (CK-2) Troponin I NT-Pro-B Natriuret Pep 2640 H Impressions: Chest X-Ray 11/26/20 08:19 IMPRESSION: Enlarged cardiac silhouette without other evidence of acute intrathoracic process. Assessment and Plan - Diagnosis (1) Atrial flutter with rapid ventricular response Is this a current diagnosis for this admission?: Yes Plan: New onset atrial flutter. Flutter waves captured following administration of adenosine. CHADSVASC score is 3 and she denies any history of significant bleeding -on therapeutic Lovenox Keep on telemetry Thyroid function is adequate Still in rapid ventricular response in the 110-120s. Cardiology following- s/p amio drip, on PO amio 200mg bid, s/p dig load, on PO Digoxin Check digoxin level in the morning. Planning for transfer to [facility] tomorrow for ablation or possible ROMA cardioversion. Patient accepted by Dr. Kuldeep Tran (2) Type 2 LA (myocardial infarction) Is this a current diagnosis for this admission?: Yes Plan: Flat troponin trend. Likely type II LA from demand ischemia given her rapid ventricular rate. (3) Acute systolic heart failure Is this a current diagnosis for this admission?: Yes Plan: Echo notes EF of 35%, mild to moderate mitral regurgitation, and dilated IVC with less than 50% collapse of respiration. We will optimize her heart rate with beta blockade, digoxin. Losartan on hold and Lasix discontinued yesterday due to soft BP. Oxygenation has remained adequate on room air. (4) Hypertension Qualifiers: Hypertension type: essential hypertension Qualified Code(s): I10 - Essential (primary) hypertension Is this a current diagnosis for this admission?: Yes (5) Diabetes mellitus type 2 in obese Is this a current diagnosis for this admission?: Yes Plan: Hold Metformin. Sliding scale insulin and Accu-Cheks. Likely has stage III CKD but creatinine is at baseline. (6) Tobacco abuse Is this a current diagnosis for this admission?: Yes Plan: Continue Wellbutrin. Nicotine patch. Counseled thoroughly against smoking. (7) Varicose veins of both lower extremities Qualifiers: Varicose vein complication: asymptomatic Qualified Code(s): I83.93 - Asymptomatic varicose veins of bilateral lower extremities Is this a current diagnosis for this admission?: Yes - Time Time Spent with patient: 15-24 minutes Anticipated Discharge Disposition: Tertiary Anticipated Discharge Timeframe: within 24 hours
[2020-11-28] MEDS: ATORVASTATIN CALCIUM 40 MG TABLET PO SCH (21:34)
[2020-11-28] MEDS: METOPROLOL SUCCINATE 50 MG TAB.SR.24H PO SCH (21:34)
[2020-11-29 04:57] LABS: HEMATOCRIT 40.1 % (36.0-47.0); HEMOGLOBIN 13.5 g/dL (12.0-15.5); MEAN CORPUSCULAR HEMOGLOBIN 31.4 pg (27.0-33.4); MEAN CORPUSCULAR HGB CONC 33.6 g/dL (32.0-36.0); MEAN CORPUSCULAR VOLUME 94 fl (80-97); PLATELET COUNT 245 10^3/uL (150-450); RED BLOOD COUNT 4.28 10^6/uL (3.72-5.28); RED CELL DISTRIBUTION WIDTH 14.2 % (11.5-14.0); WHITE BLOOD COUNT 6.9 10^3/uL (4.0-10.5)
[2020-11-29 07:03] LABS: APPEARANCE,URINE SLIGHTLY-CLOUDY; BILIRUBIN,URINE NEGATIVE (NEGATIVE); COLOR,URINE YELLOW; GLUCOSE, URINE NEGATIVE (NEGATIVE); KETONES,URINE NEGATIVE (NEGATIVE); LEUKOCYTE ESTERASE,URINE SMALL (NEGATIVE); NITRITE,URINE NEGATIVE (NEGATIVE); PROTEIN,URINE NEGATIVE (NEGATIVE); URINE SPECIFIC GRAVITY 1.006; UROBILINOGEN,URINE NEGATIVE mg/dL (<2.0)
[2020-11-29] MEDS: INSULIN LISPRO 100 UNIT/ML 3 ML VIAL SUBCUT SCH ×2 (08:28→12:14)
[2020-11-29] MEDS: CHOLECALCIFEROL (D3) 1,000 UNIT (25 MCG) TABLET PO SCH (10:43)
[2020-11-29] MEDS: METOPROLOL SUCCINATE 50 MG TAB.SR.24H PO SCH (10:43)
[2020-11-29] MEDS: DIGOXIN 0.125 MG TABLET PO SCH (10:43)
[2020-11-29] MEDS: BUPROPION HCL 75 MG TABLET PO SCH (10:43)
[2020-11-29] MEDS: AMIODARONE HCL 200 MG TABLET PO SCH (10:43)
[2020-11-29] MEDS: ENOXAPARIN SODIUM INJ 100 MG/1 ML DISP.SYRIN SUBCUT SCH (10:43)
[2020-11-29] MEDS: MULTIVITAMIN TABLET PO SCH (10:43)
[2020-11-29 13:15] VITALS: BP 113/81
--- NOTE | 2020-11-29 14:25 | PDOC TRANSFER SUMMARY ---
General Admission Date/PCP: 11/27/20 08:50 JOHNDANNA EATONP-Tamanna Admission Date: 11/26/20 Transfer Date: 11/29/20 Accepting Facility: [facility] Accepting Physician: Kuldeep Tran [cardiology] Resuscitation Status: Full Code - Transfer Diagnosis (1) Atrial flutter with rapid ventricular response Is this a current diagnosis for this admission?: Yes (2) Type 2 TN (myocardial infarction) Is this a current diagnosis for this admission?: Yes (3) Acute systolic heart failure Is this a current diagnosis for this admission?: Yes (4) Hypertension Is this a current diagnosis for this admission?: Yes (5) Diabetes mellitus type 2 in obese Is this a current diagnosis for this admission?: Yes (6) Tobacco abuse Is this a current diagnosis for this admission?: Yes (7) Varicose veins of both lower extremities Is this a current diagnosis for this admission?: Yes - Transfer Medications Home Medications: Atorvastatin Calcium [Lipitor 40 mg Tablet] 40 mg PO QHS 11/25/20 Calcium Carbonate 300 mg PO DAILY 11/25/20 Cholecalciferol (Vitamin D3) [Vitamin D3 1000 Unit Tablet] 1,000 unit PO BID 11/25/20 Losartan Potassium [Cozaar 50 mg Tablet] 50 mg PO DAILY 11/25/20 Metformin HCl 500 mg PO BID 11/25/20 Multivitamin 1 each PO DAILY 11/25/20 Bupropion HCl [Bupropion Xl] 150 mg PO DAILY 11/26/20 Cyclobenzaprine HCl 5 mg PO Q8HP PRN 11/26/20 Transfer Medications: Current Medications Acetaminophen (Acetaminophen 325 Mg Tablet) 650 mg PO Q6HP PRN PRN Reason: FOR PAIN Stop: 12/26/20 16:27 Al Hydrox/Mg Hydrox/Simethicone (Mag Hydrox/Al Hydrox/Simeth Susp 30 Ml Udcup) 15 ml PO Q6HP PRN PRN Reason: HEARTBURN Stop: 12/26/20 16:08 Amiodarone HCl (Amiodarone Hcl 200 Mg Tablet) 200 mg PO BID [facility] Stop: 12/28/20 09:59 Last Admin: 11/29/20 10:43 Dose: 200 mg Documented by: Atorvastatin Calcium (Atorvastatin Calcium 40 Mg Tablet) 40 mg PO QHS SELWYN Stop: 12/26/20 21:59 Last Admin: 11/28/20 21:34 Dose: 40 mg Documented by: Bupropion HCl (Bupropion Hcl 75 Mg Tablet) 75 mg PO Q12 [facility] Stop: 12/26/20 21:59 Last Admin: 11/29/20 10:43 Dose: 75 mg Documented by: Cholecalciferol (Cholecalciferol (D3) 1,000 Unit (25 Mcg) Tablet) 1,000 unit PO DAILY [facility] Stop: 12/27/20 09:59 Last Admin: 11/29/20 10:43 Dose: 1,000 unit Documented by: Cyclobenzaprine HCl (Cyclobenzaprine Hcl 10 Mg Tablet) 5 mg PO Q8HP PRN PRN Reason: MUSCLE SPASMS Stop: 12/27/20 08:50 Dextrose (Dextrose 50%-Water 25 Gm/50 Ml Disp.Syrin) 12.5 gm IV PRN PRN; Protocol PRN Reason: FOR BG 50-69 IN ALERT PATIENT Stop: 12/26/20 16:30 Dextrose (Dextrose 50%-Water 25 Gm/50 Ml Disp.Syrin) 25 gm IV PRN PRN; Protocol PRN Reason: PER PROTOCOL Stop: 12/26/20 16:30 Digoxin (Digoxin 0.125 Mg Tablet) 0.125 mg PO DAILY [facility] Stop: 12/28/20 09:59 Last Admin: 11/29/20 10:43 Dose: 0.125 mg Documented by: Enoxaparin Sodium (Enoxaparin Sodium Inj 100 Mg/1 Ml Disp.Syrin) 90 mg SUBCUT Q12 [facility] Stop: 12/26/20 21:59 Last Admin: 11/29/20 10:43 Dose: 90 mg Documented by: Glucagon (Glucagon,Human Recomb 1 Mg Inj) 1 mg IM PRN PRN; Protocol PRN Reason: Evaluate for BG < 70 Stop: 12/26/20 16:30 Glucose (Dextrose 40% Gel 15 Gm Tube) 15 gm PO PRN PRN; Protocol PRN Reason: FOR BG 50-69 IN ALERT PATIENT Stop: 12/26/20 16:30 Glucose (Dextrose 40% Gel 15 Gm Tube) 30 gm PO PRN PRN; Protocol PRN Reason: FOR BG < 50 IN ALERT PATIENT Stop: 12/26/20 16:30 Insulin Human Lispro (Insulin Lispro 100 Unit/Ml 3 Ml Vial) 0 - 12 unit SUBCUT ACHS [facility]; Protocol Stop: 12/26/20 21:59 Last Admin: 11/29/20 12:14 Dose: Not Given Documented by: Losartan Potassium (Losartan Potassium 50 Mg Tablet) 50 mg PO DAILY [facility] Stop: 12/27/20 09:59 Last Admin: 11/27/20 10:13 Dose: Not Given Documented by: Metoprolol Succinate (Metoprolol Succinate 50 Mg Tab.Sr.24h) 50 mg PO Q12 [facility] Stop: 12/28/20 21:59 Last Admin: 11/29/20 10:43 Dose: 50 mg Documented by: Metoprolol Tartrate (Metoprolol Tartrate Pf/Inj 5 Mg/5 Ml Sdv) 5 mg IV Q6HP PRN PRN Reason: for sustained hr>120 Stop: 12/26/20 16:16 Last Admin: 11/28/20 18:00 Dose: 5 mg Documented by: Multivitamins (Multivitamin Tablet) 1 tab PO DAILY [facility] Stop: 12/27/20 09:59 Last Admin: 11/29/20 10:43 Dose: 1 tab Documented by: Nicotine (Nicotine 14 Mg/24 Hr Patch.Td24) 1 each TD DAILYP PRN PRN Reason: WITHDRAWAL SYMPTOMS Stop: 12/26/20 16:46 Ondansetron HCl (Ondansetron Hcl Inj/Pf 4 Mg/2 Ml Sdv) 4 mg IV Q8HP PRN PRN Reason: FOR NAUSEA/VOMITING Stop: 12/26/20 16:08 Sodium Chloride (Normal Saline Flush 2.5 Ml Disp.Syrin) 2.5 ml IV Q8 [facility] Stop: 12/26/20 21:59 Last Admin: 11/29/20 13:07 Dose: Not Given Documented by: - Allergies Allergies/Adverse Reactions: No Known Allergies Allergy (Unverified 11/25/20 12:44) - Diet/Activity Discharge Diet: Cardiac Hospital Course Hospital Course: History of Present Illness on admission: TOMY LEO is a 60 year old female with history of hypertension, diabetes type 2, tobacco use, who presents to the hospital with complaints of pa lpitations. Patient was actually scheduled to have a routine screening colonoscopy this morning and presented to [facility] from which she was referred to the ER after being noted to be tachycardic in the 130s. Notably patient has no previous diagnosis of arrhythmia but she does states that for the past 6 weeks, she has been experiencing intermittent episodes of palpitations occasionally with mild dizziness but never syncopized. She has not experienced any chest pain. She denies any history of heart disease, stroke or other vascular disease. In the ER, patient received Lopressor IV push and diltiazem push with no effect. She also received a bolus of 1 L normal saline. She subsequently received adenosine which slowed down the rhythm enough to worm picker on flutter waves. She currently denies any chest pain or shortness of breath and feels well. - Diagnosis (1) Atrial flutter with rapid ventricular response Is this a current diagnosis for this admission?: Yes Plan: New onset atrial flutter. Flutter waves captured following administration of adenosine on admission. CHADSVASC score is 3 and she denies any history of significant bleeding -on therapeutic Lovenox Thyroid function test is adequate Still in rapid ventricular response in the 110-120s. Had difficulty controlling her rate with diltiazem drip and even IV beta- hunter. Diltiazem drip later discontinued due to cardiomyopathy. Cardiology recommended amiodarone drip which she has completed. Now on PO amio 200mg bid, s/p dig load, on PO Digoxin Digoxin level this morning was adequate at 1.4. Consider discontinuing digoxin after rhythm is controlled. Planning for transfer to [facility] for ablation or possible ROMA cardioversion. Patient accepted by Dr. Kuldeep Tran (2) Type 2 TN (myocardial infarction) Is this a current diagnosis for this admission?: Yes Plan: Flat troponin trend 0.14--0.13. Likely type II TN from demand ischemia given her rapid ventricular rate. Never had any chest pain. (3) Acute systolic heart failure Is this a current diagnosis for this admission?: Yes Plan: Echo notes EF of 35%, mild to moderate mitral regurgitation, and dilated IVC with less than 50% collapse of respiration. We will optimize her heart rate with beta blockade. Losartan on hold and Lasix discontinued yesterday due to soft BP. Oxygenation has remained adequate on room air. (4) Hypertension Qualifiers: Hypertension type: essential hypertension Qualified Code(s): I10 - Essential (primary) hypertension Is this a current diagnosis for this admission?: Yes (5) Diabetes mellitus type 2 in obese Is this a current diagnosis for this admission?: Yes Plan: Hold Metformin. Sliding scale insulin and Accu-Cheks. Creatinine currently stable at 1.5. Baseline from 1 month ago was 1.4. She may have CKD stage III or subacute kidney injury from her cardiomyopathy. (6) Tobacco abuse Is this a current diagnosis for this admission?: Yes Plan: Continue Wellbutrin. Nicotine patch. Counseled thoroughly against smoking. (7) Varicose veins of both lower extremities Qualifiers: Varicose vein complication: asymptomatic Qualified Code(s): I83.93 - Asymptomatic varicose veins of bilateral lower extremities Is this a current diagnosis for this admission?: Yes Physical Exam Vital Signs: Temp Pulse Resp BP Pulse Ox 97.2 F 123 H 17 113/81 98 11/29/20 11:44 11/29/20 11:44 11/29/20 11:44 11/29/20 11:44 11/29/20 11:44 Intake & Output 11/28/20 11/29/20 11/30/20 06:59 06:59 06:59 Intake Total 2541 2730 837 Output Total 1350 1450 800 Balance 1191 1280 37 Weight 89.993 kg 91.9 kg General appearance: PRESENT: no acute distress, cooperative Neck exam: ABSENT: JVD Respiratory exam: PRESENT: clear to auscultation devon, symmetrical, unlabored. ABSENT: tachypnea, wheezes Cardiovascular exam: PRESENT: irregular rhythm, +S1, +S2, tachycardia GI/Abdominal exam: PRESENT: soft. ABSENT: rebound, rigid, tenderness Extremities exam: PRESENT: +1 edema Neurological exam: PRESENT: alert, awake, oriented to person, oriented to place, oriented to time, oriented to situation Results Laboratory Results: 11/29/20 03:39 11/28/20 04:37 11/29/20 11/29/20 03:39 06:28 WBC 6.9 RBC 4.28 Hgb 13.5 Hct 40.1 MCV 94 MCH 31.4 MCHC 33.6 RDW 14.2 H Plt Count 245 Urine Color YELLOW Urine Appearance SLIGHTLY-CLOUDY Urine pH 6.0 Ur Specific [place] 1.006 Urine Protein NEGATIVE Urine Glucose (UA) NEGATIVE Urine Ketones NEGATIVE Urine Blood NEGATIVE Urine Nitrite NEGATIVE Ur Leukocyte Esterase SMALL H Urine WBC (Auto) 1 Urine RBC (Auto) 0 11/26/20 11/26/20 11/26/20 08:40 08:40 11:30 Creatine Kinase 106 CK-MB (CK-2) 2.07 Troponin I 0.146 0.131 NT-Pro-B Natriuret Pep 11/26/20 11:30 Creatine Kinase CK-MB (CK-2) Troponin I NT-Pro-B Natriuret Pep 2640 H Impressions: Chest X-Ray 11/26/20 08:19 IMPRESSION: Enlarged cardiac silhouette without other evidence of acute intr athoracic process. Plan Time Spent: Greater than 30 Minutes
== END 2020-11-29 14:30 | disposition short-term general hospital (02) | DRG 280 ==
LOC: ER 07:14 → EH 15:45 → 5 18:35 → OBSVTOIN 11-27 08:50
PROVIDERS: ADMIT Internal Medicine; ATTEND Internal Medicine
DX: I48.92 Unspecified atrial flutter (principal); I21.A1 Myocardial infarction type 2; I50.21 Acute systolic (congestive) heart failure; I42.9 Cardiomyopathy, unspecified; I11.0 Hypertensive heart disease with heart failure; E11.9 Type 2 diabetes mellitus without complications; I83.93 Asymptomatic varicose veins of bilateral lower extremities; E78.5 Hyperlipidemia, unspecified; F32.9 Major depressive disorder, single episode, unspecified; F17.210 Nicotine dependence, cigarettes, uncomplicated; Z20.828 Contact with and (suspected) exposure to other viral communicable diseases; Z79.84 Long term (current) use of oral hypoglycemic drugs; Z79.899 Other long term (current) drug therapy; Z71.6 Tobacco abuse counseling; Z82.49 Family history of ischemic heart disease and other diseases of the circulatory system
CPT/HCPCS: 36415; 71045; 80048; 80053; 80162; 81001; 82550; 82553; 82962; 83735; 83880; 84439; 84443; 84484; 85025; 85027; 85610; 93005; 93010; 93306; 96361; 96372; 96374; 96375; 96376; 99285; 0241U; C9803; G0378; J0153; J0282; J1160; J1650; J1940; J3490; J7030; J7060; S0028

== ENCOUNTER → 2020-11-26 | Day surgery (SDC) | payer BC ==
[~2020-11-26] MED LIST: LIDOCAINE 1% INJ-PF (10 MG/ML) 30 ML SDV ONE; METOPROLOL TARTRATE PF/INJ 5 MG/5 ML SDV IV ONE; PROPOFOL INJ 200 MG/20 ML VIAL IV ONE
== END ==
LOC: OROUT 06:50
PROVIDERS: ATTEND Internal Medicine Gastroenterology
DX: Z12.11 Encounter for screening for malignant neoplasm of colon (principal); Z53.09 Procedure and treatment not carried out because of other contraindication
CPT/HCPCS: J3490 ×2; J2704